=== PATIENT | male | born 1950 | race Caucasian/White ===

== ENCOUNTER 2018-11-28 10:17 | Emergency (ER) | payer MEDICARE, BC ==
[~2018-11-28] VITALS: Ht 177.8 cm; Wt 80.7 kg
[2018-11-28] MEDS ORDERED: AMLO10 PO (10:52)
[2018-11-28] MEDS ORDERED: Crutch1 EACH MISC (11:57)
[2018-11-28] MEDS ORDERED: TYLECOD3 PO (11:58)
== END 2018-11-28 12:09 | disposition home or self-care (01) ==
LOC: ER 10:17
DX: S79.911A Unspecified injury of right hip, initial encounter (principal); W18.30XA Fall on same level, unspecified, initial encounter; Z79.899 Other long term (current) drug therapy
CPT/HCPCS: 73502; 99283-25